=== PATIENT | female | born 1945 | race Caucasian/White ===

== ENCOUNTER 2021-12-11 08:06 | Day surgery (SDC) | payer MEDICARE ==
[~2021-12-11] VITALS: Ht 157.5 cm; Wt 74.7 kg
[2021-12-11] MEDS ORDERED: REQUIP0.25 MG PO (09:03)
[2021-12-11] MEDS ORDERED: PRAVACHOL 40MG40 MG PO (09:04)
[2021-12-11] MEDS ORDERED: PROZAC 20MG20 MG PO (09:05)
[2021-12-11] MEDS ORDERED: AMBIEN 10MG10 MG PO (09:06)
[2021-12-11] MEDS ORDERED: VTAMINC250TA (09:08)
[2021-12-11] MEDS ORDERED: THE MEDICINE S200 M2 PO (09:09)
[2021-12-11] MEDS ORDERED: OMEGA-31 SGL PO (09:09)
[2021-12-11] MEDS ORDERED: MULTI VITAMINS1 TAB PO (09:11)
[2021-12-11 09:16] VITALS: BP 167/60; PULSE 56; TEMP 98.1
[2021-12-11] MEDS ORDERED: PERCOCET 325 MG1 TA2 PO (10:44)
[2021-12-11] MEDS ORDERED: FLOMAX 0.40.4 MG/CAP PO (10:44)
[2021-12-11 11:10] VITALS: BP 152/54; PULSE 53; TEMP 97.2
[2021-12-11 11:25] VITALS: BP 147/57; PULSE 52
[2021-12-11 11:40] VITALS: BP 140/58; PULSE 52
[2021-12-11 11:55] VITALS: BP 132/49; PULSE 60
--- NOTE | 2021-12-11 12:25 | NUR ---
1110 RETURNS TO ROOM 1 PER CART. AWAKE, ALERT. RESP UNLABORED. PATIENT DENIES PAIN. VITAL SIGNS OBTAINED. SISTER IN ROOM. 1125 TOLERATES PO MUFFIN AND WATER WITHOUT NAUSEA. CONTINUES TO DENY DISCOMFORT. 1155 DISCHARGE INSTRUCTIONS REVIEWED, WITH PATIENT AND SISTER VERBALIZING UNDERSTANDING.
== END 2021-12-11 12:25 | disposition home or self-care (01) ==
LOC: SDCO 08:06
DX: N20.2 Calculus of kidney with calculus of ureter (principal); Q62.5 Duplication of ureter; Z87.891 Personal history of nicotine dependence
CPT/HCPCS: C1769; C2617; J0690; J1885; J2405; J2704; J7120; Q9967